=== PATIENT | male | born 1960 | race Caucasian/White ===

== ENCOUNTER → 2020-09-21 | Outpatient (CLI) | payer BC ==
[~2020-09-21] MED LIST: ASPIRIN81 M1 PO; CHOLESTEROL1 POW PO; COQ10 PO; FLEXERIL5 MG PO; HYDROCODONE BIT1 T11 PO; MELATONIN5 MG PO; PRAVACHOL20 MG PO; TOPROL XL25 MG PO
== END | disposition home or self-care (01) ==
LOC: COVID19 09:05
PROVIDERS: ATTEND Social Worker Clinical
DX: U07.1 COVID-19 (principal)

== ENCOUNTER 2024-04-27 13:25 | Inpatient (IN) | payer OTHER ==
[~2024-04-27] VITALS: Ht 175.3 cm; Wt 147.9 kg
[2024-04-27 13:33] VITALS: BP 148/85
[2024-04-27] MEDS ORDERED: Acetaminophen/Oxycodone 5 MG/325 MG TABLET PO ONE (13:40)
[2024-04-27 13:43] LABS: BASO # 0.1 10*3/uL (0.0-0.1); BASO % 0.8 % (0.0-1.0); EOS # 0.2 10*3/uL (0.0-0.4); EOS % 3.1 % (1.0-4.0); HEMATOCRIT 45.6 % (42.0-52.0); LYMPH # 2.2 10*3/uL (1.3-4.4); LYMPH % 28.9 % (27.0-41.0); MEAN CELL VOLUME 87.5 fl (80.0-94.0); MEAN CORPUSCULAR HGB 29.8 pg (27.0-31.0); MEAN PLATELET VOLUME 9.1 fl (9.6-12.3); MONO # 0.5 10*3/uL (0.1-1.0); MONO % 7.3 % (3.0-9.0); NEUT # 4.4 10*3/uL (2.3-7.9); NEUT % 59.4 % (47.0-73.0); PLATELET COUNT AUTOMATED 216 10*3/uL (130-400); RED BLOOD COUNT 5.21 10*6/uL (4.50-5.90); RED CELL DISTRI WIDTH 13.3 % (0-14.5); WHITE BLOOD COUNT 7.4 10*3/uL (4.8-10.8)
[2024-04-27 14:00] LABS: ALKALINE PHOSPHATASE 59 U/L (46-116); BUN 16 mg/dl (9-23); CHLORIDE 104 mmol/L (98-107); POTASSIUM 4.1 mmol/L (3.4-5.1); SGPT/ALT 33 U/L (5-49); TOTAL PROTEIN 7.2 gm/dL (6.0-8.0)
[2024-04-27 14:06] LABS: ACT PARTIAL THROMBO TIME 27.1 SECONDS (20.0-32.1)
[2024-04-27] MEDS ORDERED: NAPROXEN500 M1 PO (14:23)
[2024-04-27] MEDS ORDERED: ZETIA10 MG PO (14:24)
[2024-04-27] MEDS ORDERED: TRAZODONE100 MG PO (14:24)
[2024-04-27] MEDS ORDERED: CYCLOBENZAPRINE10 MG PO (14:26)
[2024-04-27] MEDS ORDERED: [UNRECOGNIZED DRUG - OTHER] TD (14:28)
[2024-04-27 15:20] VITALS: BP 140/75
[2024-04-27] MEDS ORDERED: SODIUM CHLORIDE 0.9% 1,000 ML IV ONE (15:40)
[2024-04-27 15:50] VITALS: BP 142/84
[2024-04-27 16:20] VITALS: BP 146/91
[2024-04-27] MEDS ORDERED: ACETAMINOPHEN 325 MG TAB PO PRN (16:20)
[2024-04-27] MEDS ORDERED: Magnesium Hydroxide 30 ML UDC PO PRN (16:20)
[2024-04-27] MEDS ORDERED: BISACODYL 5 MG TAB PO PRN (16:20)
[2024-04-27] MEDS ORDERED: Ondansetron Hydrochloride 4 MG/2 ML VIAL IV PRN (16:20)
[2024-04-27 16:50] VITALS: BP 144/78
[2024-04-27] MEDS ORDERED: Technetium Tc 99M Tetrofosmi 0.23 MG KIT IJ SCH (17:05)
[2024-04-27 20:18] VITALS: BP 151/64
[2024-04-28 02:00] VITALS: BP 105/79
[2024-04-28 06:09] LABS: BUN 15 mg/dl (9-23); CHLORIDE 106 mmol/L (98-107); CHOLESTEROL 257 mg/dL (<200); FREE T4 1.39 ng/dl (0.89-1.76); LDL CHOLESTEROL 189 mg/dL (9-159); POTASSIUM 4.5 mmol/L (3.4-5.1); TRIGLYCERIDES 128 mg/dl (<150)
[2024-04-28 06:19] LABS: BASO # 0.1 10*3/uL (0.0-0.1); BASO % 0.8 % (0.0-1.0); EOS # 0.3 10*3/uL (0.0-0.4); EOS % 4.1 % (1.0-4.0); HEMATOCRIT 45.1 % (42.0-52.0); LYMPH # 2.3 10*3/uL (1.3-4.4); LYMPH % 38.5 % (27.0-41.0); MEAN CELL VOLUME 89.3 fl (80.0-94.0); MEAN CORPUSCULAR HGB 29.7 pg (27.0-31.0); MEAN CORPUSCULAR HGB CONC 33.3 g/dl (33.0-37.0); MEAN PLATELET VOLUME 9.8 fl (9.6-12.3); MONO # 0.5 10*3/uL (0.1-1.0); MONO % 8.4 % (3.0-9.0); NEUT # 2.9 10*3/uL (2.3-7.9); NEUT % 47.7 % (47.0-73.0); PLATELET COUNT AUTOMATED 215 10*3/uL (130-400); RED BLOOD COUNT 5.05 10*6/uL (4.50-5.90); RED CELL DISTRI WIDTH 13.4 % (0-14.5); WHITE BLOOD COUNT 6.1 10*3/uL (4.8-10.8)
[2024-04-28] MEDS ORDERED: Regadenoson 0.4 MG/5 ML SYR IV ONE (06:53)
[2024-04-28 08:00] VITALS: BP 136/79
[2024-04-28] MEDS ORDERED: Enoxaparin Sodium 40 MG/0.4 ML SYR SC SCH (10:00)
[2024-04-28] MEDS ORDERED: EZETIMIBE 10 MG TAB PO SCH (10:00)
[2024-04-28] MEDS ORDERED: METOPROLOL SUCCINATE XR 25 MG TAB PO SCH (11:45)
[2024-04-28] MEDS ORDERED: ATORVASTATIN CALCIUM 40 MG TABLET PO SCH (11:45)
[2024-04-28] MEDS ORDERED: ASPIRIN ENTERIC COATED 81 MG TAB PO SCH (11:45)
[2024-04-28] MEDS ORDERED: IOHEXOL 350 MG/ML 100 ML VIAL IV ONE (14:35)
[2024-04-28] MEDS ORDERED: SODIUM CHLORIDE 0.9% 100 ML BAG IV ONE (14:35)
[2024-04-28 16:00] VITALS: BP 147/84
[2024-04-28] MEDS ORDERED: METOPROLOL SUCC25 M2 PO (16:05)
[2024-04-28] MEDS ORDERED: ATORVASTATIN CA40 M1 PO (16:05)
== END 2024-04-28 17:13 | disposition home or self-care (01) | DRG 392 ==
LOC: ED 13:25 → 4E 16:19 → EDHOLD 16:19 → 4E 04-28 01:36
PROVIDERS: Internal Medicine; ADMIT Student in an Organized Health Care Education/Training Program; ATTEND Student in an Organized Health Care Education/Training Program
PROC: 4A02XM4 Measurement of Cardiac Total Activity, External Approach (ICD-10-PCS; principal; 2024-04-28)
PROC: 3E073KZ Introduction of Other Diagnostic Substance into Coronary Artery, Percutaneous Approach (ICD-10-PCS; 2024-04-28)
DX: K21.9 Gastro-esophageal reflux disease without esophagitis (principal); E87.1 Hypo-osmolality and hyponatremia; Z68.42 Body mass index [BMI] 45.0-49.9, adult; G90.9 Disorder of the autonomic nervous system, unspecified; I34.0 Nonrheumatic mitral (valve) insufficiency; E66.01 Morbid (severe) obesity due to excess calories; F41.9 Anxiety disorder, unspecified; G90.8 Other disorders of autonomic nervous system; E78.5 Hyperlipidemia, unspecified; R73.9 Hyperglycemia, unspecified; Z87.891 Personal history of nicotine dependence; Z82.49 Family history of ischemic heart disease and other diseases of the circulatory system; Z79.899 Other long term (current) drug therapy